=== PATIENT | female | born 1970 | race Caucasian/White ===

== ENCOUNTER 2022-07-25 09:00 | Observation (INO) ==
--- NOTE | 2022-06-21 12:45 | PAT Medication Instructions ---
Medication Instructions Date of Service June 21, 2022 Home Medications Medication Instructions Recorded Reba Silva #1 ea 06/19/22 albuterol 90 mcg/actuation aerosol inhaler 90 mcg inhalation BID atorvastatin 80 mg tablet (Lipitor) 80 mg PO HS cyanocobalamin (vitamin B-12) 1,000 mcg/mL injection solution 1,000 mcg IM dulaglutide 1.5 mg/0.5 mL subcutaneous pen injector (Trulicity) 1.5 mg subcut WK fluticasone 250 mcg-salmeterol 50 mcg/dose blistr powdr for inhalation (Advair Diskus) 1 inh inhalation BID furosemide 40 mg tablet (Lasix) 40 mg PO QAM insulin glargine 100 unit/mL (3 mL) subcutaneous pen (Lantus Solostar U-100 Insulin) 60 unit subcut PM insulin lispro 100 unit/mL subcutaneous solution (Humalog U-100 Insulin) 1 sliding scale dose subcut USEASDIRECTD onabotulinumtoxinA 100 unit solution for injection (Botox) 0 unit subcut UD pantoprazole 40 mg tablet,delayed release (Protonix) 40 mg PO QAM pregabalin 150 mg capsule (Lyrica) 150 mg PO BID rimegepant 75 mg disintegrating tablet (Nurtec ODT) 75 mg PO UD PRN Continue as directed dulaglutide 1.5 mg/0.5 mL subcutaneous pen injector (Trulicity) 1.5 mg subcut WK rimegepant 75 mg disintegrating tablet (Nurtec ODT) 75 mg PO UD PRN(if needed) DO NOT take the morning of surgery cyanocobalamin (vitamin B-12) 1,000 mcg/mL injection solution 1,000 mcg IM furosemide 40 mg tablet (Lasix) 40 mg PO QAM insulin lispro 100 unit/mL subcutaneous solution (Humalog U-100 Insulin) 1 sliding scale dose subcut USEASDIRECTD onabotulinumtoxinA 100 unit solution for injection (Botox) 0 unit subcut UD Take morning of surgery With a small sip of water, OTHERWISE NOTHING TO EAT OR DRINK AFTER MIDNIGHT: albuterol 90 mcg/actuation aerosol inhaler 90 mcg inhalation BID fluticasone 250 mcg-salmeterol 50 mcg/dose blistr powdr for inhalation (Advair Diskus) 1 inh inhalation BID pantoprazole 40 mg tablet,delayed release (Protonix) 40 mg PO QAM pregabalin 150 mg capsule (Lyrica) 150 mg PO BID Take evening before surgery albuterol 90 mcg/actuation aerosol inhaler 90 mcg inhalation BID atorvastatin 80 mg tablet (Lipitor) 80 mg PO HS fluticasone 250 mcg-salmeterol 50 mcg/dose blistr powdr for inhalation (Advair Diskus) 1 inh inhalation BID insulin glargine 100 unit/mL (3 mL) subcutaneous pen (Lantus Solostar U-100 Insulin) 60 unit subcut PM pregabalin 150 mg capsule (Lyrica) 150 mg PO BID Other Notes If you have any questions please call us at [phone] or [phone] or [phone] or [phone]
--- NOTE | 2022-06-29 10:37 | Anesthesiology Consultation ---
Date of Service June 29, 2022 Assessment & Plan (1) Encounter for pre-operative examination: - check BSG am DOS. - Outpatient joint assessment: Patient is currently scheduled for inpatient pathway. If re-evaluated pending system levels during current pandemic/surgeon requests outpatient pathway, patient is not recommended candidate for outpatient joint program from anesthesia standpoint. Chart Review Chart Review: Acceptable Risk for Surgery and Patient seen in Pre Admission Testing Teaching & Discussion Pre-Anesthesia Teaching/Discussion Notes: Instructed NPO after midnight before surgery, except medications with 15 cc of water. Medication instructions provided according to the PAT guidelines. History Surgery Operation Date: 07/25/22 07:00 Proposed Procedures p Right Total Knee Arthroplasty - Chase Ramos MD Height/Weight Height: 5 ft 4 in Weight: 136.078 kg Allergies Allergy/AdvReac Type Severity Reaction Status Date / Time shellfish derived Allergy Unknown Hives Verified 06/21/22 10:56 latex Allergy itching Verified 06/21/22 10:56 amoxicillin [From Augmentin] AdvReac Unknown UTI/YEAST Verified 06/21/22 10:56 INFECTION clavulanic acid AdvReac Unknown UTI/YEAST Verified 06/21/22 10:56 [From Augmentin] INFECTION Medications Home Medications Medication Instructions Recorded Confirmed Last Taken Wheeled Walker #1 ea 06/19/22 06/19/22 Unknown albuterol 90 mcg/actuation aerosol 90 mcg inhalation BID 06/21/22 06/21/22 Unknown inhaler atorvastatin 80 mg tablet (Lipitor) 80 mg PO HS 06/21/22 06/21/22 Unknown cyanocobalamin (vitamin B-12) 1,000 mcg IM MO 06/21/22 06/21/22 Unknown 1,000 mcg/mL injection solution dulaglutide 1.5 mg/0.5 mL 1.5 mg subcut WK 06/21/22 06/21/22 Unknown subcutaneous pen injector (Trulicity) fluticasone 250 mcg-salmeterol 50 1 inh inhalation BID 06/21/22 06/21/22 Unknown mcg/dose blistr powdr for inhalation (Advair Diskus) furosemide 40 mg tablet (Lasix) 40 mg PO QAM 06/21/22 06/21/22 Unknown insulin glargine 100 unit/mL (3 60 unit subcut PM 06/21/22 06/21/22 Unknown mL) subcutaneous pen (Lantus Solostar U-100 Insulin) insulin lispro 100 unit/mL 1 sliding scale dose subcut 06/21/22 06/21/22 Unknown subcutaneous solution (Humalog USEASDIRECTD U-100 Insulin) onabotulinumtoxinA 100 unit 0 unit subcut UD 06/21/22 06/21/22 Unknown solution for injection (Botox) pantoprazole 40 mg tablet,delayed 40 mg PO QAM 06/21/22 06/21/22 Unknown release (Protonix) pregabalin 150 mg capsule (Lyrica) 150 mg PO BID 06/21/22 06/21/22 Unknown rimegepant 75 mg disintegrating 75 mg PO UD PRN Headache 06/21/22 06/21/22 Unknown tablet (Nurtec ODT) Past Medical History Medical History (Updated 06/29/22 @ 13:35 by Marquita Robb PA-C) Asthma CONTROLLED W/ DAILY maintenance and albuterol inhaler use GERD (gastroesophageal reflux disease) controlled, stable per pt History of COVID-19 01/2021- SINUS CONGESTION, RESOLVED HTN (hypertension) controlled, stable per pt Hx of multiple myeloma ? PERSONAL HX- REPORTS NO TREATMENT, MONITORING W/ YEARLY MRI, FOLLOWS W/ [facility]- NO ONCOLOGY Hyperlipidemia Migraine KRISTOPHER (obstructive sleep apnea) HAS NOT USED CPAP IN 2-3 YRS AGO Type 2 diabetes mellitus IDDM Patient denies h/o stroke, seizures, heart attack, heart failure, blood clots or blood transfusions. Exercise / Class Metabolic Activity II 4-5 Yardwork/Stairs/Walk up hill (denies chest discomfort or shortness of breath with 1 FOS) Past Family History Family History Other No family history of adverse response to anesthesia Past Surgical History Surgical History (Updated 06/29/22 @ 10:51 by Marquita Robb PA-C) H/O partial thyroidectomy dysphagia d/t nodules History of esophagogastroduodenoscopy (EGD) History of surgical removal of ganglion cyst L wrist Hx of breast surgery INFECTION Hx of section Hx of cholecystectomy Hx of colonoscopy Hx of foot surgery LEFT Hx of hernia repair X3 Hx of hysterectomy Hx of removal of cyst ARM PIT AND LOWER ABD. Hx of tonsillectomy Hx of tooth extraction Past Anesthesia History No Family Hx of Anesthesia Complications and Other (h/o respiratory arrest kiara- operatively prior to asthma diagnosis and inhaler prescription, reports subsequent surgeries without any adverse events) History of PONV No Hx of PONV and No Hx of Motion Sickness Social History Smoking Status: Current every day smoker tobacco type: cigarettes Smoking cigarettes per day: 3 PER DAY - ADVISED Do You Dip or Chew Tobacco: No Hx Alcohol Use: No Hx Substance Use: No substance use type: does not use Review of Systems Patient denies chest pain, shortness of breath, dyspnea on exertion, fever, chi lls, cough, wheezing or palpitations. Physical Exam Vital Signs Vitals BP 138/83 P 80 TEMP 98.4 SP02 97% on RA RESP 17 Physical Full cervical extension range of motion without pain TMD 3.5 finger breadths Mallampati Score 2 Dentition: edentulous, full upper dentures Lungs: normal respiratory effort. Good air movement, clear throughout to auscultation, no adventitious breath sounds Cardiac: regular rate and rhythm, no murmurs noted Carotid arteries: negative bruit bilat Lab Results Anesthesia Preop Results Results Anesthesia Widget: WBC 8.45 K/ul (4.8-10.8) 06/29/22 Hgb 12.8 g/dl (12.0-16.0) 06/29/22 Hct 39.2 % (37.0-47.0) 06/29/22 Plt 221 K/uL (130-400) 06/29/22 Na 144 mmol/L (136-145) 06/29/22 K 4.4 mmol/L (3.5-5.1) 06/29/22 Cl 108 mmol/L (98-107) H 06/29/22 CO2 29 mmol/L (21-32) 06/29/22 BUN 14 mg/dl (6-23) 06/29/22 Creat 0.68 mg/dl (0.6-1.2) 06/29/22 Glucose Level 116 mg/dl (70-99(Fasting)) H 06/29/22 PT 10.7 Seconds (9.0-12.0) 06/29/22 PTT 24.4 Seconds (21.0-31.0) 06/29/22 INR 1.0 (0.9-1.1) 06/29/22 HA1c 5.6 % (4.5-5.6) 06/29/22 Blood Type A Positive 06/29/22 Antibody Screen NEGATIVE 06/29/22 Testing Electrocardiogram Date: 06/29/22 NSR, rate 72 bpm Possible LA enlargement Chest X-Ray Date: 06/29/22 No acute cardiopulmonary findings COVID-19 Risk Screen Screening Information COVID-19 Screen Date: 06/29/22 Exposure 21 Days Family/Household +COVID Last 21 Days: No Exposure 10 Days Any COVID Exposure Last 10 Days: No Symptoms Last 10 Days Experienced COVID Sx Last 10 Days: No + COVID 0-90 Days COVID + in Last 0-90 Days: No
--- NOTE | 2022-07-21 21:52 | History and Physical Report ---
CHIEF COMPLAINT: Bilateral knee pain and discomfort, right side a bit worse than the left. HISTORY OF PRESENT ILLNESS: The patient is a 51-year-old female from [place], who presents for surgi harrison treatment of her knees. She has a 15-year history of bilateral knee pain and discomfort and desc ribes it has gotten worse over time. She does have a history of bilateral knee scopes done at [facility] about 8 years ago. Since then, she has had multiple steroid shots, gel , which have become less successful over time. She has tried bracing as well as physical therapy, which has not helped. She has attempted to lose weight, but having difficulty doing this. She did lose about 30-3 5 pounds over the past 6 months, which has not helped either. She did have a recent abdominal surger y with open wound. We have been waiting to heal before considering any surgery. Her wounds have now healed. No signs of infection. She would like to consider knee replacement. The right one is both ering more than the left. PAST MEDICAL HISTORY: 1. Morbid obesity, BMI of 54. 2. Diabetes, insulin-dependent. 3. Depression. 4. Elevated cholesterol. 5. Hypertension. 6. Multiple myeloma. 7. Asthma. PREVIOUS SURGICAL HISTORY: Includes: 1. . 2. Hysterectomy. 3. Herniorrhaphy. 4. Cholecystectomy. 5. Wrist surgery. 6. Tonsillectomy. 7. Oral surgery. 8. Breast surgery. ALLERGIES: AUGMENTIN, LATEX, SHELLFISH. CURRENT MEDICATIONS: Include: 1. Tramadol. 2. Albuterol. 3. Amitriptyline. 4. Fenofibrate. 5. Fluticasone. 6. Furosemide. 7. Insulin. 8. Trulicity. 9. Losartan. 10. Zyrtec. 11. Botox. 12. Simvastatin. 13. Protonix. 14. Lyrica. 15. Vitamin B12. SOCIAL HISTORY: A 52-year-old female. Lives in [place]. She is . Three children. Does not drink. [id number] history of smoking. FAMILY HISTORY: Significant for diabetes, multiple myeloma. REVIEW OF SYSTEMS: Significant for well-controlled insulin-dependent diabetes with an A1c of 5.6. S he does have multiple musculoskeletal aches and pains. No fevers. No history of DVT or PE. No know n clotting disorders. PHYSICAL EXAMINATION: GENERAL: Shows a pleasant, fairly large middle-aged female. She looks older than her stated age. HEENT: Benign. NECK: Supple. No lymphadenopathy. LUNGS: Clear to auscultation. HEART: Regular rate and rhythm. ABDOMEN: Soft, nontender, nondistended. EXTREMITIES: Grossly neurovascularly intact except as follows. Examination of both knees revealed the patient ambulates with a waddling gait. Examination of the ri ght knee reveals a large soft tissue envelope. Slight varus alignment to her knee. Tender diffusely . Small knee effusion. Range of motion is near full extension to 120 degrees of flexion. No instab ility. Examination of left knee reveals slight varus alignment. A large soft tissue envelope. Range of mot ion is 5-120 at best. No instability. No pain with hip motion. X-RAYS: X-rays of both knees were reviewed. It shows advanced bilateral tricompartmental DJD. She has complete loss of her medial joint space. She has got osteophytes in all 3 compartments. Diffuse osteopenia. ASSESSMENT: A 52-year-old female with multiple medical comorbidities including diabetes, morbid obes ity, depression, elevated cholesterol, hypertension, recent abdominal surgery with advanced bilateral knee arthritis. She has a history of knee arthroscopy in the past. She has failed all conservative treatment and wants to consider knee surgery. PLAN: We had a long discussion as far as treatment. She has exhausted all conservative care. We ar e going to proceed with knee replacement at her request. We will do one knee at a time. Her abdomin al wound has healed up. Sed rate and C-reactive protein are normal. There are no signs of infection . We will proceed with right knee replacement. The risks and benefits of this procedure were explai estella to the patient and include but not limited to DVT, PE, , infection, neurological injury, vas cular injury, bleeding problem, pain, limited range of motion, stiffness, failure to relieve her symp toms, incomplete relief of symptoms, etc. The patient understands and desires to proceed. Informed consent was obtained. I specifically discussed with her increased size, increased risk of thrombosis, and infection. She is aware of this. She does not smoke, so we will likely need to use a patch in the hospital. Her diabetes is well cont rolled with insulin. She is planning to be discharged to home with home health. She will follow up with us 2 weeks' postop. Job ID: [id number]
[~2022-07-25 09:00] MED LIST: ACETAMINOPHEN 500 MG TAB PO SCH; BUPIVACAINE 0.5 % 5 MG/1 ML PF 10ML VIAL ONE; BUPIVACAINE LIPOSOME/PF 266 MG, BUPIVACAINE/EPINEPHRINE 50 ML, SODIUM CHLORIDE 0.9% PF ... INFIL SCH; CeleBREX 200 MG CAP PO SCH; FAMOTIDINE 20 MG TAB PO SCH; LR 500ML BOLUS, THEN 15ML/HR IV SCH; LR 60ML/HR IV SCH; METOCLOPRAMIDE HCL 10 MG TABLET PO SCH; MIDAZOLAM HCL 1 MG/ML 2ML VIAL ONE; ROPIVACAINE 0.5% 5 MG/ML 30 ML VIAL ONE; Scopolamine 1 MG TDSY TD SCH; TRANEXAMIC ACID 1,000 MG **IV Intra-op IV SCH; ceFAZolin 2000MG 2,000 MG/15 ML SYR IV SCH
--- NOTE | 2022-07-25 10:33 | History & Physical Bridge Note ---
Date of Service July 25, 2022 History & Physical Bridge Note I have examined the patient, reviewed the History & Physical and in the interval since the performance of the History & Physical I have noted the following changes of clinical significance: no changes noted
[2022-07-25] MEDS ORDERED: ONDANSETRON INJ 2 MG/ML 2 ML VIAL IV PRN ×2 (12:13→16:40)
[2022-07-25] MEDS ORDERED: fentaNYL citrate PF 100 MCG/2 ML VIAL IV PRN (12:13)
[2022-07-25] MEDS ORDERED: ATROPINE SULFATE 0.1 MG/ML 10ML SYR IV PRN (12:13)
[2022-07-25] MEDS ORDERED: ePHEDrine sulfate 50 MG/ML AMP IV PRN (12:13)
[2022-07-25] MEDS ORDERED: fentaNYL citrate PF 100 MCG/2 ML VIAL ONE (12:14)
[2022-07-25] MEDS ORDERED: LIDOCAINE 2% 2 ML VIAL/AMP(20MG/ML) INFIL ONE (12:20)
[2022-07-25] MEDS ORDERED: PROPOFOL IV EMULSION 10 MG/ML 20 ML VIAL IV ONE ×2 (12:21→14:38)
[2022-07-25] MEDS ORDERED: ONDANSETRON INJ 2 MG/ML 2 ML VIAL ONE (12:21)
[2022-07-25] MEDS ORDERED: BUPIVACAINE/EPINEPHRINE 0.25% 1:200,000 30 ML VIAL ONE (12:48)
[2022-07-25] MEDS ORDERED: VANCOMYCIN HCL 1000MG/20ML VIAL ONE (12:48)
[2022-07-25] MEDS ORDERED: SODIUM CHLORIDE 0.9% PF 50 ML VIAL ONE (12:49)
[2022-07-25] MEDS ORDERED: BUPIVACAINE LIPOSOME 1.3% 266 MG/20 ML VIAL ONE (12:49)
[2022-07-25] MEDS ORDERED: ceFAZolin 330 MG/ML 1 GM VIAL ONE (13:35)
[2022-07-25] MEDS ORDERED: ceFAZolin 1000MG 1,000 MG/7.5 ML SYR IV ONE (14:00)
--- NOTE | 2022-07-25 15:13 | Operative Report ---
PG Post Operative Report Pre & Post Diagnosis Operation Date: 07/25/22 12:00 Pre-Op Diagnosis: Degenerative joint disease Knee Right Post-Op Diagnosis: Degenerative joint disease Knee Right I identified the patient and participated in the time-out.: Yes Procedure Operation Date: 07/25/22 12:00 Actual Procedures p Right Total Knee Arthroplasty(Right) - Chase Ramos MD Surgeon Chase Ramos MD Assistant Front Desk Manager Eder Bui PA-C Estimated Blood Loss 50 Findings Consistent with Post-Op Diagnosis Other findings were advanced right knee tricompartment DJD. She had grade 4 [id number] disease in all 3 compartments. Very large soft tissue envelope. Osteophytes in all 3 compartments. Moderate-sized joint effusion. Specimens Right knee sent for pathology Anesthesia Type Spinal MAC Complications none Disposition Accompanied Patient To Recovery: No Indications Patient is a 52-year-old female has had a long history of bilateral knee pain discomfort describes gotten worse over the past 15 years. She been through extensive conservative treatments became less successful over time. She does have a history of bilateral knee scopes done 8 years ago which helped her for a while. Pain is become debilitating. She elected proceed with total knee arthroplasty. Description of Procedure Operative implants consist of: 1 Biomet Vanguard size 67.5 right posterior stabilized femoral component. 2. Biomet size 71 tibial tray. 3. 10 mm posterior stabilized polyethylene insert. 4. 31 x 8 all poly patella. The patient was taken the operating, identified, placed on the operating table supine position but all contact areas were properly padded. IV antibiotics tried by anesthesia team. Spinal anesthetic and abductor canal block had provided in the holding area. Li catheter was placed in sterile fashion. Right thigh high tourniquet was then placed in the right lower extremities then prepped and draped in usual sterile fashion. The right leg was elevated and exsanguinated with use of an Esmarch and tourniquet was placed at 350 mmHg. An anterior approach to the right knee was then performed to longitudinal incision centered over the patella. Sharp dissection was carried through subcutaneous tissue down the extensor mechanism. Medial parapatellar arthrotomy incision was made. Some subperiosteal dissection was carried out medially. The fat pad was resected from Neath patella tendon. Lateral patellofemoral ligament was released. Patella subluxated laterally and the knee was flexed. The osteophytes taken on distal femur. The ACL and PCL were then released from distal femur the tibia subluxated anteriorly. The external tibial alignment jig was then placed in the anterior face of the tibia and adjusted 14 mm medially. Proximal tibial cut was made remove about 2 mm of bone from the medial side. The tibia sized to a size 71. Attention drawn the femur. The distal femur was then with a sharp drill. Intramedullary canal was suction. A right 5 degree valgus cutting guide was placed. Distal femoral cutting block was pinned in place. Distal femoral cut was made to take an additional 3 mm of bone off distal femur. The femur was then sized to a size 75.5. The AP cutting block was pinned parallel to the epicondylar axis which was 4 degrees of external rotation. Anterior cut, anterior chamfer, posterior cut, posterior chamfer cuts were made. The box cutting guide was placed in a just slight lateral and the box cut was made. The knee was flexed. The remnants of the medial lateral menisci were excised. The osteophytes taken off the posterior aspect the femur. A trial femoral component was placed for the tibial tray was pinned in maximum external rotation and the drill and stem punch were used to create defect in proximal tibia for the tibial tray. The knee was then trialed and 10 mm insert fit most appropriately. Attention drawn the patella. The patella was cleaned of all soft tissues. Patella thickness measured 22 mm in thickness was cut down to 13. Was sized to a size 31 patella. The lug holes were drilled for a 31 patella. The lateral osteophytes removed. Patella button was placed. Knee was taken through range of motion patella tracked nicely with no thumbs test. Attention drawn to placing permanent components. Nupathe all trial components were removed. Bone plug was placed in the distal femur limit blood loss. Double batch Palacos G cement was mixed. I did add an additional 2 g of vancomycin due to her history of obesity and diabetes and recurrent infections after abdominal surgery. A Biomet Vanguard size 67.5 right posterior stabilized femoral component, size 71 tibial tray, a 10 mm posterior stabilized polyethylene insert, and a 31 x 8 all Paller patella then cemented in place. Knee was brought out in full extension till cement hardened. Final cement check was then performed. The pericapsular tissues were injected with total of 100 cc of combination of 20 cc of Exparel, 30 cc normal saline, 50 cc of quarter percent Marcaine with epinephrine. Patient did receive 1 g tranexamic acid. The tourniquet was let down for final tourniquet time of 68 minutes. Hemostasis assured use electrocautery. Extensor mechanism closed with combination 1 PDS suture #1 Vicryl suture in a [id number] fashion. Extensor mechanism checked found to be intact and the subcutaneous tissues then closed with 2 Dexon suture in a buried interrupted fashion skin was closed skin gisella. Leg was then cleaned and dried and sterile dressed with Xeroform, 4 fours, sterile cast padding, Brayan bandage were applied. Patient then transferred to the recovery room in stable condition. Patient tolerated procedure well and there were no complications. Eder Bui, my physician day care assistant, was present for the entire procedure. His assistance was essential and required for appropriate patient positioning, prepping and draping, surgical exposure, performing the technical details of the operation, placement the implants, closure of the wound, and placement of the sterile bandage. I attest to the content of the Intraoperative Record and any orders documented therein. Any exceptions are noted below.
--- NOTE | 2022-07-25 15:50 | XRay Report ---
XR knee RT 1 or 2V routine CLINICAL HISTORY: Postoperative evaluation. COMPARISON: Knee radiographs May 18, 2022. FINDINGS: Alignment of the total right knee arthroplasty is anatomic. There is no periprosthetic fra cture. No unexpected radiopaque foreign bodies are present. There are skin gisella. IMPRESSION: Expected findings following total right knee arthroplasty. ACT 112: Negative or not required by law. Electronically signed by: Hiram Mendoza M.D. 07/25/2022 3:49 PM
--- NOTE | 2022-07-25 16:18 | Anesthesiology Progress Note ---
Date of Service July 25, 2022 Anesthesia Post Procedure Vital Signs Vital Signs: Temp Pulse Pulse Resp BP Pulse Ox O2 Del Method 07/25/22 16:05 60 15 104/71 96 Room Air 07/25/22 15:55 53 L 13 117/73 96 Room Air 07/25/22 15:45 97.7 F 55 L 13 122/81 95 Room Air 07/25/22 15:35 58 L 12 120/73 94 Room Air 07/25/22 15:25 56 L 15 131/80 100 Oxymask 07/25/22 15:15 97.2 F L 87 12 129/92 100 Oxymask 07/25/22 09:47 98.1 F 67 20 138/100 96 Room Air O2 Flow Rate 07/25/22 16:05 07/25/22 15:55 07/25/22 15:45 07/25/22 15:35 07/25/22 15:25 9 07/25/22 15:15 9 07/25/22 09:47 Pain Intensity Right Knee: Pain Intensity: 4 Transfer of Care Handoff Completed per policy Notes Mental Status: alert / awake / arousable and participated in evaluation Patient Amnestic to Procedure: Yes Nausea / Vomiting: adequately controlled Pain: adequately controlled Airway Patency, RR, SpO2: stable & adequate BP & HR: stable & adequate Hydration State: stable & adequate Neuraxial Anesthesia: was administered and sensory block is resolving Anesthetic Complications: no major complications apparent and Pt Satisfied with anesthetic care
[2022-07-25] MEDS ORDERED: CARBOHYDRATES FOR HYPOGLYCEMIA PO PRN (16:40)
[2022-07-25] MEDS ORDERED: NON-FORMULARY MEDICATION (Insulin Lispro [Humalog U-100 Insulin] 100 unit/mL Solution) SQ SCH (16:40)
[2022-07-25] MEDS ORDERED: GLUCOSE 10 TAB/TUBE PO PRN (16:40)
[2022-07-25] MEDS ORDERED: diphenhydrAMINE Capsule 25 MG CAP PO PRN (16:40)
[2022-07-25] MEDS ORDERED: GLUCOSE 40% GEL 15 GM TUBE PO PRN (16:40)
[2022-07-25] MEDS ORDERED: bisacodyL 10 MG SUPP PR PRN (16:40)
[2022-07-25] MEDS ORDERED: PHARMACY GLYCEMIC MGMT CONSULT PRN (16:40)
[2022-07-25] MEDS ORDERED: DEXTROSE 50% 50 ML SYRINGE IV PRN (16:40)
[2022-07-25] MEDS ORDERED: METOCLOPRAMIDE HCL INJ 5 MG/ML 2 ML VIAL IV PRN (16:40)
[2022-07-25] MEDS ORDERED: NALOXONE HCL 0.4 MG/1 ML VIAL/CARP IV PRN (16:40)
[2022-07-25] MEDS ORDERED: SODIUM CHLORIDE 0.9% 1000ML 1,000 ML IV SCH (16:40)
[2022-07-25] MEDS ORDERED: MAGNESIUM HYDROXIDE SUSP 30 ML UDC PO PRN (16:40)
[2022-07-25] MEDS ORDERED: GLUCAGON FOR INJ 1 MG VIAL SQ PRN (16:40)
[2022-07-25] MEDS ORDERED: ALUMINUM/MAGNESIUM SUSP 30 ML UDC PO PRN (16:40)
[2022-07-25] MEDS: Scopolamine CHECK PATCH PLACEMENT SCH (17:26)
[2022-07-25] MEDS: INSULIN ASPART PER UNIT CHARGE SC SCH ×2 (17:33→21:30)
[2022-07-25] MEDS: ASCORBIC ACID 500 MG TAB PO SCH (17:35)
[2022-07-25] MEDS: KETOROLAC 30 MG/ML VIAL IV SCH (17:35)
[2022-07-25] MEDS: oxyCODONE HCL IR 5 MG TAB (IMMEDIATE RELEASE) PO PRN (17:42)
[2022-07-25] MEDS: HYDROmorphone INJ 0.5 MG/0.5 ML SYR IV PRN ×2 (18:28→22:36)
[2022-07-25] MEDS: TAPENTADOL HCL ER 50 MG TABCR PO SCH (20:09)
[2022-07-25] MEDS: ASPIRIN 81 MG ECTAB PO SCH (20:13)
[2022-07-25] MEDS: DOCUSATE SODIUM 100 MG CAP PO SCH (20:13)
[2022-07-25] MEDS: ATORVASTATIN 40 MG TAB PO SCH (20:13)
[2022-07-25] MEDS: SENNA 8.6 MG TAB PO SCH (20:13)
[2022-07-25] MEDS: PREGABALIN 150 MG CAP PO SCH (20:28)
[2022-07-25] MEDS ORDERED: LANTUS PER UNIT CHARGE SC SCH (21:00)
[2022-07-25] MEDS ORDERED: SENNA 8.6 MG TAB PO SCH (21:00)
[2022-07-25] MEDS ORDERED: NON-FORMULARY MEDICATION (Insulin Glargine [Lantus Solostar U-100 Insulin] 100 unit/mL (3 SQ SCH (21:00)
[2022-07-25] MEDS: ALBUTEROL HFA 8 GM INHALER INH SCH (21:12)
[2022-07-25] MEDS ORDERED: TRANEXAMIC ACID / 0.7% NACL 1,000 MG/100 ML BAG IV SCH (21:15)
[2022-07-25] MEDS: ACETAMINOPHEN 500 MG TAB PO SCH (22:11)
[2022-07-25] MEDS: ceFAZolin 2000MG 2,000 MG/15 ML SYR IV SCH (22:14)
[2022-07-26] MEDS: KETOROLAC 30 MG/ML VIAL IV SCH ×5 (00:58→23:01)
[2022-07-26] MEDS: Scopolamine CHECK PATCH PLACEMENT SCH ×3 (00:58→16:09)
[2022-07-26] MEDS: oxyCODONE HCL IR 5 MG TAB (IMMEDIATE RELEASE) PO PRN ×2 (03:43→12:15)
[2022-07-26] MEDS: ACETAMINOPHEN 500 MG TAB PO SCH ×3 (06:11→22:59)
[2022-07-26] MEDS: ceFAZolin 2000MG 2,000 MG/15 ML SYR IV SCH (06:11)
[2022-07-26 07:12] LABS: Hemoglobin 11.6 g/dl (12.0-16.0); Mean Corpuscular Hemoglobin 29.2 pg (25.0-34.0); Mean Corpuscular Hgb Conc 32.2 g/dL (32.0-36.0); Mean Corpuscular Volume 90.7 fL (80.0-100.0); Mean Platelet Volume 10.6 fL (9.4-12.4); Platelet Count 210 K/uL (130-400); RDW Coefficient of Variation 12.6 % (11.5-14.5); RDW Standard Deviation 41.6 fL (36.4-46.3); Red Blood Count 3.97 M/uL (4.20-5.40); White Blood Count 7.29 K/ul (4.8-10.8)
[2022-07-26] MEDS: ALBUTEROL HFA 8 GM INHALER INH SCH ×4 (07:15→19:37)
[2022-07-26 07:28] LABS: Calcium 8.5 mg/dl (8.6-10.3); Creatinine Clr Calc Pharmacy 85.7 ml/min; Est GFR (African American) 68.1 ml/min; Est GFR (Non-African American) 58.7 ml/min; Potassium 4.3 mmol/L (3.5-5.1)
[2022-07-26] MEDS: PREGABALIN 150 MG CAP PO SCH ×2 (08:21→20:48)
[2022-07-26] MEDS: TAPENTADOL HCL ER 50 MG TABCR PO SCH ×2 (08:21→20:55)
[2022-07-26] MEDS: ASPIRIN 81 MG ECTAB PO SCH ×2 (08:22→20:48)
[2022-07-26] MEDS: PANTOprazole 40 MG TAB PO SCH (08:23)
[2022-07-26] MEDS: FUROSEMIDE 40 MG TAB PO SCH (08:23)
[2022-07-26] MEDS: ASCORBIC ACID 500 MG TAB PO SCH ×2 (08:23→17:36)
[2022-07-26] MEDS: DOCUSATE SODIUM 100 MG CAP PO SCH ×2 (08:23→20:48)
[2022-07-26] MEDS: FLUTICASONE/VILANTEROL 100/25MCG 14 PUFFS/INHALER INH SCH (08:24)
[2022-07-26] MEDS: NICOTINE 14 MG/24 HR PATCH TD SCH (08:24)
[2022-07-26] MEDS: INSULIN ASPART PER UNIT CHARGE SC SCH ×4 (08:30→20:55)
[2022-07-26] MEDS ORDERED: LANTUS PER UNIT CHARGE SC SCH ×2 (09:00→21:00)
--- NOTE | 2022-07-26 09:06 | Pharmacy Report ---
Pharmacy Glycemic Short Note 2 - Date of Service July 26, 2022 - Glycemic Short BSG Results (Last 24 hours): 07/25/22 07/25/22 07/25/22 09:44 15:19 17:01 Glucose POC Glucose 110 H 99 94 07/25/22 07/26/22 07/26/22 20:57 06:13 07:58 Glucose 135 H POC Glucose 114 H 138 H OUTPATIENT ANTIDIABETIC REGIMEN: * Lantus 60 units SC qPM * Humalog SSI (BSG > 160 mg/dL) * Trulicity 1.5 mg SC weekly (Sundays) HbA1c: 5.6% (06/29/22) ASSESSMENT: * PH is a 52 year old female POD #1 s/p right total knee arthroplasty * No perioperative steroids given * BSGs well-controlled postoperatively, fasting mildly elevated this morning at 138 mg/dL (patient did refuse basal insulin last evening) * Attempted to give basal again this morning - dose again refused * BSG recheck late morning of 96 mg/dL - will loosen Novolog PLAN FOR INPATIENT GLYCEMIC CONTROL: * Basal insulin * Lantus scale to provide 0-20 units SC HS (see EHR for details) * Bolus insulin * NovoLog per scale ACHS or Q6hrs while NPO * Goal Range: Low 110 mg/dL - High 140 mg/dL * Correction Factor: 30 mg/dL/unit * Nutritional / Prandial insulin per carb ratio of 1 unit per 10 grams CHO consumed
--- NOTE | 2022-07-26 10:26 | Hospitalist Consultation ---
Date of Consultation July 26, 2022 Assessment & Plan (1) Near syncope: Probably a vasovagal episode related to postoperative right knee pain. Vital signs are now stable and oxygen saturation is stable. Stat EKG is pending. If symptoms recur, will start IV fluids (2) COPD (chronic obstructive pulmonary disease): Stable. Nebulizers as needed are ordered (3) Type 2 diabetes mellitus: ADA diet. Sliding scale coverage. (4) Morbid obesity: BMI greater than 40. Weight loss recommended Plan We will start IV fluids if symptoms recur. Pain control measures are in place. Daily labs ordered. Discharge disposition to be determined History of Present Illness Reason for Consultation: Near syncope Requesting Physician: Dr. Chase Ramos Attending Physician: Chase Ramos MD History of Present Illness 52-year-old female who is 1 day status post right total knee arthroplasty for underlying degenerative joint disease. She apparently had a near syncopal ep isode today probably due to pain postoperatively involving the right knee. Vital signs are now stable. Glucose at the time she had the event was 96. Oxygen saturation 94% on room air. She denies chest pain. EKG is pending. Allergies Allergy/AdvReac Type Severity Reaction Status Date / Time shellfish derived Allergy Unknown Hives Verified 07/25/22 09:42 latex Allergy itching Verified 07/25/22 09:42 amoxicillin [From Augmentin] AdvReac Unknown UTI/YEAST Verified 07/25/22 09:42 INFECTION clavulanic acid AdvReac Unknown UTI/YEAST Verified 07/25/22 09:42 [From Augmentin] INFECTION Home Medications Medication Instructions Recorded Confirmed Type Wheeled Walker #1 ea 06/19/22 06/19/22 Rx albuterol 90 mcg/actuation aerosol 90 mcg inhalation BID 06/21/22 07/25/22 History inhaler atorvastatin 80 mg tablet (Lipitor) 80 mg PO HS 06/21/22 07/25/22 History cyanocobalamin (vitamin B-12) 1,000 mcg IM MO 06/21/22 07/25/22 History 1,000 mcg/mL injection solution dulaglutide 1.5 mg/0.5 mL 1.5 mg subcut WK 06/21/22 07/25/22 History [facility] fluticasone 250 mcg-salmeterol 50 1 inh inhalation BID 06/21/22 07/25/22 History mcg/dose blistr powdr for inhalation (Advair Diskus) furosemide 40 mg tablet (Lasix) 40 mg PO QAM 06/21/22 07/25/22 History insulin glargine 100 unit/mL (3 60 unit subcut PM 06/21/22 07/25/22 History mL) subcutaneous pen (Lantus Solostar U-100 Insulin) insulin lispro 100 unit/mL 1 sliding scale dose subcut 06/21/22 07/25/22 History subcutaneous solution (Humalog USEASDIRECTD U-100 Insulin) onabotulinumtoxinA 100 unit 0 unit subcut UD 06/21/22 07/25/22 History solution for injection (Botox) pantoprazole 40 mg tablet,delayed 40 mg PO QAM 06/21/22 07/25/22 History release (Protonix) pregabalin 150 mg capsule (Lyrica) 150 mg PO BID 06/21/22 07/25/22 History rimegepant 75 mg disintegrating 75 mg PO UD PRN Headache 06/21/22 07/25/22 History tablet (Nurtec ODT) acetaminophen 500 mg tablet 1,000 mg PO TID pain 30 days #180 07/23/22 Rx (Tylenol Extra Strength) tabs aspirin 81 mg tablet,delayed 81 mg PO BID 45 days #90 tabs 07/23/22 07/25/22 Rx release (Paola Low Dose Aspirin) cefadroxil 500 mg capsule 500 mg PO BID 7 days #14 caps 07/23/22 07/25/22 Rx ketorolac 10 mg tablet 10 mg PO Q6 pain 5 days #20 tabs 07/23/22 07/25/22 Rx ondansetron 4 mg disintegrating 4 mg PO Q8 PRN nausea #20 tabs 07/23/22 07/25/22 Rx tablet oxycodone 5 mg tablet 5 - 10 mg PO Q6 PRN pain #40 tabs 07/23/22 07/25/22 Rx sennosides 8.6 mg tablet (Senokot) 8.6 mg PO BID prevent constipation 07/23/22 07/25/22 Rx 14 days #28 tabs Patient History Medical History (Updated 07/26/22 @ 10:23 by Ignacio Chacon MD) Asthma CONTROLLED W/ DAILY maintenance and albuterol inhaler use GERD (gastroesophageal reflux disease) controlled, stable per pt History of COVID-19 01/2021- SINUS CONGESTION, RESOLVED HTN (hypertension) controlled, stable per pt Hx of multiple myeloma ? PERSONAL HX- REPORTS NO TREATMENT, MONITORING W/ YEARLY MRI, FOLLOWS W/ [facility] NEUR[facility]- NO ONCOLOGY Hyperlipidemia Migraine KRISTOPHER (obstructive sleep apnea) HAS NOT USED CPAP IN 2-3 YRS AGO Type 2 diabetes mellitus IDDM Surgical History H/O partial thyroidectomy dysphagia d/t nodules History of esophagogastroduodenoscopy (EGD) History of surgical removal of ganglion cyst L wrist Hx of breast surgery INFECTION Hx of section Hx of cholecystectomy Hx of colonoscopy Hx of foot surgery LEFT Hx of hernia repair X3 Hx of hysterectomy Hx of removal of cyst ARM PIT AND LOWER ABD. Hx of tonsillectomy Hx of tooth extraction Family History Other No family history of adverse response to anesthesia Social History Smoking Status: Current every day smoker Cigarettes Per Day: 3 PER DAY - ADVISED; Second Hand Exposure: No; Do You Dip or Chew Tobacco: No; Tobacco Cessation Education Requested by Patient: No Hx Alcohol Use: No Hx Substance Use: No Preferred Language: Luxembourgish Communication Ability: Effective Neuropsychology Medical Consultant Required: No Beliefs That Will Affect Care: None Current Living Situation: Spouse Other Information That Helps Us Care for You: No Feels Safe at Home: Yes Safety Concerns: Feels Safe At This Time Assistive Devices: Cane and Denture - Upper Review of Systems Review of Systems: Constitutional-no fever or chills ENT-no blurred vision, no double vision, no epistaxis, no sore throat Respiratory-no cough, no wheezing, no shortness of breath Cardiac-no palpitations, no chest pain, no syncope GI-no nausea, vomiting, diarrhea, melena, hematochezia -no urinary retention, no urinary incontinence, no dysuria, no hematuria Musculoskeletal-postoperative right knee pain as expected Skin-no bruising, no rashes, no pruritus Neuro-no isolated weakness, no paresthesia, no weakness Psych-no depression, no anxiety Physical Exam Physical Exam: General-alert and oriented x3, no fevers, no chills. Morbidly obese HEENT-head atraumatic and normocephalic, pupils equal and reactive to light, extraocular muscles intact Neck-no lymphadenopathy or thyromegaly, trachea midline Chest-clear to auscultation percussion. No rales wheezing or rhonchi Cardiac-regular rate and rhythm, normal S1 and S2, no murmurs Abdomen-normal bowel sounds, nontender, no hepatosplenomegaly Extremities-right knee is heavily bandaged postoperatively Neuro-cranial nerves II through XII intact, motor and sensory function within normal limits, strength symmetrical , no focal deficits Psych-normal affect, normal mood Results & Data Results & Data Vital Signs (Past 12 Hours) Vital Signs Temp Pulse Resp BP Pulse Ox O2 Del Method 07/26/22 07:37 63 16 94 Room Air 07/26/22 07:02 36.9 C 65 16 121/77 96 Room Air 07/26/22 03:58 36.9 C 64 18 110/75 94 Room Air 07/25/22 22:26 36.4 C L 55 L 16 159/75 H 96 Room Air Laboratory Results 07/26/22 06:13 07/26/22 06:13 PG Care Time/CCT Total # of Minutes Spent Total Time Spent with Patient: Total time spent is greater than 50% in coordination of care (as documented) at patient's floor/unit and/or counseling patient: Coding Level of Care Code 06546 IN/OBS CONSULT LVL 5,80M Diagnoses Near syncope R55 COPD (chronic obstructive pulmonary disease) J44.9 Type 2 diabetes mellitus E11.9 Morbid obesity E66.01
--- NOTE | 2022-07-26 11:19 | Orthopedic Progress Note ---
Date of Service July 26, 2022 Assessment & Plan (1) Status post total right knee replacement: She had a near syncopal episode, likely vasovagal episode, while up with therapy today. Feels better at this point, not lightheaded. EKG completed. Hospitalist consulted and following her. She wants to try something different for pain control. Will discuss with Dr. Ramos. Subjective .POD #1 from right tka. She had a near syncopal episode while up and walking with therapy today. She complains of significant knee pain, and feels the pain medicine is not working adequately. She was helped back to a chair and into bed. A code purple was called. No chest pain. She feels better at this point. She was seen by the Dr. Chacon and ekg ordered which was normal sinus rhythm. Review of Systems All systems reviewed & are unremarkable except as noted in HPI & below. Physical Exam . alert and oriented. NAD. VSS Right leg: dressing clean, dry, intact. Results & Data Results & Data Laboratory Results . Diagnostic Findings . PG Care Time/CCT Total # of Minutes Spent Total Time Spent with Patient: Total time spent is greater than 50% in coordination of care (as documented) at patient's floor/unit and/or counseling patient: Coding Level of Care Code 14885 Post Operative Follow-Up Diagnoses Status post total right knee replacement Z96.651
[2022-07-26] MEDS: MULTIVITAMIN TAB PO SCH (12:38)
--- NOTE | 2022-07-26 14:59 | Electrocardiogram Report ---
Test Reason : Blood Pressure : / mmHG Vent. Rate : 065 BPM Atrial Rate : 065 BPM P-R Int : 186 ms QRS Dur : 086 ms QT Int : 430 ms P-R-T Axes : 040 009 028 degrees QTc Int : 447 ms Poor data quality, interpretation may be adversely affected Normal sinus rhythm Possible Left atrial enlargement Borderline ECG When compared with ECG of 29-JUN-2022 11:09, No significant change was found Confirmed by Adriel Cohen ([id number]) on 07/26/2022 2:58:42 PM Referred By: Chase Ramos Confirmed By:Vince Cohen
[2022-07-26] MEDS: HYDROmorphone HCL 2 MG TAB PO PRN (17:41)
[2022-07-26] MEDS: ATORVASTATIN 40 MG TAB PO SCH (20:48)
[2022-07-26] MEDS: SENNA 8.6 MG TAB PO SCH (20:49)
[2022-07-27] MEDS: Scopolamine CHECK PATCH PLACEMENT SCH ×2 (00:31→08:06)
[2022-07-27] MEDS: ACETAMINOPHEN 500 MG TAB PO SCH (05:05)
[2022-07-27] MEDS: KETOROLAC 30 MG/ML VIAL IV SCH (05:05)
[2022-07-27 06:31] LABS: Basophils # (auto) 0.01 K/uL (0-0.2); Basophils % (auto) 0.2 %; Eosinophils # (auto) 0.14 K/uL (0-0.50); Eosinophils % (auto) 2.4 %; Hematocrit (blood only) 32.9 % (37.0-47.0); Immature Granulocytes # (auto) 0.03 K/uL (0.01-0.20); Immature Granulocytes % (auto) 0.5 %; Lymphocytes # (auto) 1.27 K/uL (1.2-3.4); Lymphocytes % (auto) 21.4 %; Mean Corpuscular Hemoglobin 29.2 pg (25.0-34.0); Mean Corpuscular Hgb Conc 33.4 g/dL (32.0-36.0); Mean Corpuscular Volume 87.3 fL (80.0-100.0); Mean Platelet Volume 10.5 fL (9.4-12.4); Monocytes # (auto) 0.42 K/uL (0.11-0.59); Monocytes % (auto) 7.1 %; Neutrophils # (auto) 4.06 K/uL (1.40-6.50); Neutrophils % (auto) 68.4 %; Platelet Count 171 K/uL (130-400); RDW Coefficient of Variation 12.5 % (11.5-14.5); RDW Standard Deviation 40.2 fL (36.4-46.3); Red Blood Count 3.77 M/uL (4.20-5.40); White Blood Count 5.93 K/ul (4.8-10.8)
[2022-07-27 06:44] LABS: Calcium 8.6 mg/dl (8.6-10.3); Creatinine Clr Calc Pharmacy 97.3 ml/min; Est GFR (African American) 79.4 ml/min; Est GFR (Non-African American) 68.5 ml/min; Potassium 4.1 mmol/L (3.5-5.1)
[2022-07-27] MEDS: ALBUTEROL HFA 8 GM INHALER INH SCH (07:01)
--- NOTE | 2022-07-27 07:48 | Progress Notes ---
DATE OF SERVICE: 07/27/2022. SUBJECTIVE: A 52-year-old white female, postoperative day 2 from a right knee replacement. She had a vasovagal episode yesterday, but doing much better. Pain seems to be improved. No chest pain or s hortness of breath. Not feeling dizzy or lightheaded. OBJECTIVE: VITAL SIGNS: Temperature is 36.7. Vital signs are stable. GENERAL: Shows a pleasant middle-aged female. Lying in bed, looks pretty comfortable this morning. EXTREMITIES: Examination of the right leg reveals the leg to be well aligned. Very large soft tissu e envelope. Dressing is clean, dry and intact. Thigh is soft and supple. She is neurologically int act. LABORATORY DATA: Hemoglobin 11.0. Hematocrit 32.9. Electrolytes are stable. ASSESSMENT: A 52-year-old white female, postoperative day 2 from a right knee replacement, doing wel l. Had a bit of a vasovagal episode yesterday. No signs of other more concerning issues. Pain seem s to be improved. PLAN: 1. DVT prophylaxis includes thigh-high TEDs, SCDs, and aspirin twice a day. 2. PT/OT, weightbear as tolerated. Right total knee protocol. 3. Pain control, doing okay with current pain regimen. 4. Disposition: Plan to discharge to home with some home health likely later today. Job ID: [id number]
[2022-07-27] MEDS: ASCORBIC ACID 500 MG TAB PO SCH (08:05)
[2022-07-27] MEDS: DOCUSATE SODIUM 100 MG CAP PO SCH (08:05)
[2022-07-27] MEDS: PANTOprazole 40 MG TAB PO SCH (08:05)
[2022-07-27] MEDS: ASPIRIN 81 MG ECTAB PO SCH (08:05)
[2022-07-27] MEDS: MULTIVITAMIN TAB PO SCH (08:05)
[2022-07-27] MEDS: FLUTICASONE/VILANTEROL 100/25MCG 14 PUFFS/INHALER INH SCH (08:06)
[2022-07-27] MEDS: FUROSEMIDE 40 MG TAB PO SCH (08:06)
[2022-07-27] MEDS: NICOTINE 14 MG/24 HR PATCH TD SCH (08:07)
[2022-07-27] MEDS: PREGABALIN 150 MG CAP PO SCH (08:09)
[2022-07-27] MEDS: TAPENTADOL HCL ER 50 MG TABCR PO SCH (08:09)
[2022-07-27] MEDS: INSULIN ASPART PER UNIT CHARGE SC SCH (08:13)
[2022-07-27] MEDS: HYDROmorphone HCL 2 MG TAB PO PRN (08:55)
[2022-07-27] MEDS ORDERED: LANTUS PER UNIT CHARGE SC SCH (09:00)
--- NOTE | 2022-07-27 11:54 | Hospitalist Progress Note ---
Date of Service July 27, 2022 Assessment & Plan (1) Near syncope: Plan: Probably a vasovagal episode related to postoperative right knee pain. Vital signs are now stable and oxygen saturation is stable. Stat EKG was completed and there were no acute findings. (2) COPD (chronic obstructive pulmonary disease): Plan: Stable. Nebulizers as needed are ordered (3) Type 2 diabetes mellitus: Plan: ADA diet. Sliding scale coverage. (4) Morbid obesity: Plan: BMI greater than 40. Weight loss recommended Plan Home today, July 27, per primary orthopedic service Admission and Anticipated Discharge Date Admission Date: July 25, 2022 Subjective Alert and oriented. No distress. She feels better. She has been seen today by orthopedics and probably will go home later today Review of Systems Review of Systems: Constitutional-no fever or chills ENT-no blurred vision, no double vision, no epistaxis, no sore throat Respiratory-no cough, no wheezing, no shortness of breath Cardiac-no palpitations, no chest pain, no syncope GI-no nausea, vomiting, diarrhea, melena, hematochezia -no urinary retention, no urinary incontinence, no dysuria, no hematuria Musculoskeletal-postoperative right knee pain as expected Skin-no bruising, no rashes, no pruritus Neuro-no isolated weakness, no paresthesia, no weakness Psych-no depression, no anxiety Physical Exam Physical Exam: General-alert and oriented x3, no fevers, no chills. Morbidly obese HEENT-head atraumatic and normocephalic, pupils equal and reactive to light, extraocular muscles intact Neck-no lymphadenopathy or thyromegaly, trachea midline Chest-clear to auscultation percussion. No rales wheezing or rhonchi Cardiac-regular rate and rhythm, normal S1 and S2, no murmurs Abdomen-normal bowel sounds, nontender, no hepatosplenomegaly Extremities-right knee is heavily bandaged postoperatively Neuro-cranial nerves II through XII intact, motor and sensory function within normal limits, strength symmetrical , no focal deficits Psych-normal affect, normal mood Results & Data Results & Data Vital Signs (Past 12 Hours) Vital Signs Temp Pulse Pulse Resp BP BP Pulse Ox 07/27/22 09:06 36.8 C 67 79 18 112/77 118/78 94 07/27/22 08:00 07/27/22 07:39 36.8 C 67 18 118/78 94 07/27/22 07:01 79 16 93 O2 Del Method 07/27/22 09:06 07/27/22 08:00 Room Air 07/27/22 07:39 Room Air 07/27/22 07:01 Room Air Laboratory Results 07/27/22 05:44 07/27/22 05:44 PG Care Time/CCT Total # of Minutes Spent Total Time Spent with Patient: Total time spent is greater than 50% in coordination of care (as documented) at patient's floor/unit and/or counseling patient: Coding Level of Care Code 23772 SUB INP/OBS CARE 2/35MIN Diagnoses Near syncope R55 COPD (chronic obstructive pulmonary disease) J44.9 Type 2 diabetes mellitus E11.9 Morbid obesity E66.01
--- NOTE | 2022-08-01 10:20 | Discharge Summary ---
Date of Service August 01, 2022 Discharge Data Consultations 07/26/22 09:55 Consult Hospitalist Routine Procedures Performed Operation Date: 07/25/22 12:00 Actual Procedures p Right Total Knee Arthroplasty(Right) - Chase Ramos MD Hospital Course (1) Status post total right knee replacement: This is a 52 year old patient admitted on 07/25/22 and underwent total knee arthroplasty. She tolerated the procedure well and there were no complications. Transferred to the PACU post op and later to the orthopedic floor for further care. She was given ancef for antibiotic prophylaxis. She was also given SOCORRO stockings, SCDs, and aspirin for DVT prophylaxis. Hemoglobin, hematocrit, and vital signs were monitored during her hospital stay and remained stable. Did not require any blood transfusions. She did have a vasovagal episode on POD #1 and a code purple was called. The hospitalist service was consulted. EKG showed no acute changes.There were no complications during her hospital stay. By post op day #2 the patient was tolerating a diabetic diet, pain was reasonably controlled with oral pain medicine, and she was participating in physical therapy. On post op day #2 the patient was discharged home and set up with home health care. She was given printed discharge instructions including prescriptions for extra strength tylenol, aspirin, cafadroxil, ketorolac, zofran, senokot, and oxycodone. Continue physical therapy, weight bearing as tolerated. Continue SOCORRO stockings. Follow up approximately 2 weeks post op or so aris if there are problems or concerns. Coding Level of Care Code None Diagnoses Status post total right knee replacement Z96.651
[2022-08-11] MEDS ORDERED: CYANOCOBALAMIN 1000 MCG/ML VIAL IM SCH (09:00)
== END 2022-07-27 12:28 | disposition home health service (06) ==
LOC: 3E 09:00 → ASU 09:00